=== PATIENT | male | born 1965 | race Hispanic/Latino ===

== ENCOUNTER 2017-07-08 17:08 | Observation (INO) | payer MEDICAID, OTHER ==
[2017-07-08 17:08] VITALS: BMI 30.7
--- NOTE | 2017-07-08 17:37 | ED PDOC ---
Arrival/HPI - General Historian: Patient - History of Present Illness Time/Duration: Prior to Arrival Symptom Onset: Sudden Symptom Course: Unchanged Quality: Pressure <Adriana Carcamo - Last Filed: 07/08/17 19:44> <Celia Avina - Last Filed: 07/08/17 19:49> - General Chief Complaint: Chest Pain Time Seen by Provider: 07/08/17 17:13 - History of Present Illness Narrative History of Present Illness (Text): This patient is a 52 year old male with a PMHx of hypothyroidism that presents complaining of chest pressure with associated dizziness. Patient stated that this morning before he left for work he experienced the chest tightness with dizziness. Patient stated "it feels like you grabbed me from behind and squeezed". The patient symptoms then resolved. Patient had a second episode of same symptoms after work while getting off the bus around 5pm today. Additionally, patient complains of neck stiffness that started this morning. Patient denies any fevers, sick contacts, urinary symptoms, headache, or recent camping trips. Patient does complain of nausea and vomiting. Of note, patient was hit in the head with a kicked ball after the first episode but before the second episode. He experienced nausea and vomiting after getting hit in the head with a ball. Patient is a former opiod abuser and admits to sniffing heroin yesterday after 8 years free of opiods. When asked about any recent stressors, he stated that his mother just . Patient also had his levothyroxine dose increased to 200 from 150 3 weeks ago. He hasn't taken his medication for 15 days due to insurance issues. ROS POSITIVES: Lightheadedness, dizziness, vision changes (during episodes), chills (chronic), difficulty breathing (during episodes). Inc. bowel frequency w / soft consistency and green colored. NEGATIVES: Diarrhea, Constipation, fevers, urinary symptoms, sick contacts, headaches PMH: Hypothyroidism PSH: R foot surgery Allergies: Pollen Social: 1PPD for 30 years. Denies alcohol. Admits to history of opioid abuse and relapsed yesterday after 8 years. FamHx: Father - Unspecified Heart Disease, Diabetes, and unspecified CA Meds: Reviewed. 07/08/17 18:09 (Adriana Carcamo) Past Medical History - Provider Review Nursing Documentation Reviewed: Yes - Tetanus Immunization Tetanus Immunization: Unknown - Cardiac Hx Cardiac Disorders: No - Pulmonary Hx Respiratory Disorders: No - Neurological Hx Neurological Disorder: No - HEENT Hx HEENT Disorder: No - Renal Hx Renal Disorder: No - Endocrine/Metabolic Hx Hypothyroidism: Yes - Hematological/Oncological Hx Blood Disorders: No - Integumentary Hx Dermatological Disorder: No - Musculoskeletal/Rheumatological Hx Fractures: Yes (rt heel) - Gastrointestinal Hx Gastrointestinal Disorders: No - Genitourinary/Gynecological Hx Genitourinary Disorders: No - Psychiatric Hx Psychophysiologic Disorder: No Hx Substance Use: Yes (opiods) - Surgical History Hx Orthopedic Surgery: Yes (rt foot) Other/Comment: Foot surgery - Anesthesia Hx Anesthesia: Yes - Suicidal Assessment Feels Threatened In Home Enviroment: No <Adriana Carcamo - Last Filed: 07/08/17 19:44> Family/Social History Family/Social History: Diabetes, Neoplasm/Cancer Smoking Status: Heavy Smoker > 10 Cigarettes Daily Hx Alcohol Use: No Hx Substance Use: Yes (opiods) Substance used: heroin <Adriana Carcamo - Last Filed: 07/08/17 19:44> - Physician Review Nursing Documentation Reviewed: Yes <Celia Avina - Last Filed: 07/08/17 19:49> Allergies/Home Meds <Adriana Carcamo - Last Filed: 07/08/17 19:44> <Celia Avina - Last Filed: 07/08/17 19:49> Allergies/Adverse Reactions: Allergies No Known Allergies Allergy (Verified 11/18/16 21:32) Home Medications: Home Meds Medication Instructions Recorded Confirmed Levothyroxine [Levoxyl] 0.175 mg PO DAILY 11/18/16 07/08/17 Ranitidine HCl 300 mg PO DAILY 11/18/16 07/08/17 Simvastatin 40 mg PO DAILY 11/18/16 07/08/17 Review of Systems - Physician Review All systems were reviewed & negative as marked: Yes (ROS as per HPI) - Review of Systems Gastrointestinal: Normal. absent: Abdominal Pain, Constipation Genitourinary Male: Normal. absent: Dysuria, Frequency <Adriana Carcamo - Last Filed: 07/08/17 19:44> Physical Exam Vital Signs Reviewed: Yes Temperature: Afebrile Blood Pressure: Normal Pulse: Regular Respiratory Rate: Normal Appearance: Positive for: Non-Toxic, Uncomfortable Pain Distress: Mild Mental Status: Positive for: Alert and Oriented X 3 - Systems Exam Head: Present: Atraumatic, Normocephalic Pupils: Present: PERRL, Sluggish, Pinpoint Extroacular Muscles: Present: EOMI Conjunctiva: Present: Normal Mouth: Present: Moist Mucous Membranes Nose (External): Present: Atraumatic Neck: Present: Paraspinal Tenderness (Right sided paraspinal tenderness (C1-C6)) . No: Normal Range of Motion (Decreased range of Motion ) Respiratory/Chest: Present: Clear to Auscultation. No: Respiratory Distress, Accessory Muscle Use, Wheezes, Rales, Rhonchi, Tender to Palpation Cardiovascular: Present: Regular Rate and Rhythm, Normal S1, S2. No: Murmurs, Tachycardic, Bradycardic, Rub, Gallop, Muffled Abdomen: Present: Normal Bowel Sounds. No: Tenderness, Distention, Peritoneal Signs, Rebound, Guarding Upper Extremity: Present: Normal Inspection Lower Extremity: Present: Normal Inspection Neurological: Present: GCS=15, Speech Normal Skin: Present: Warm, Dry, Normal Color. No: Diaphoretic Lymphatic: Present: Cervical Adenopathy Psychiatric: Present: Alert, Oriented x 3, Normal Affect, Normal Mood <Adriana Carcamo - Last Filed: 07/08/17 19:44> Vital Signs Temp Pulse Resp BP Pulse Ox 07/08/17 19:31 77 145/101 H 07/08/17 19:23 77 18 145/101 H 97 07/08/17 17:25 98.7 F 77 17 112/78 100 Medical Decision Making <Adriana Carcamo - Last Filed: 07/08/17 19:44> - EKG Interpretation Interpreted by ED Physician: Yes Type: 12 lead EKG <Celia Avina - Last Filed: 07/08/17 19:49> ED Course and Treatment: 52 year old male with PMHx of hypothyrodism presents with chest pressure and associated dizziness. --CBC/CMP --BNP --Serum Alcohol Level --Cardiac Iso --UDS/UA --Lipase --Mg --TSH --D-Dimer --PT/PTT --Zofran/Pepcid --CXR --Head CT W/O Contrast. --EKG --Reassess and Disposition 07/08/17 18:36 (Adriana Carcamo) 07/08/17 19:20 Patient Seen With Resident: In agreement with resident note which contains more details about the patient. Patient was seen and evaluated with resident. Came up with plan and treatment together. A 52 year old male whose past medical history includes hypothyroidism complains of chest pressure and associated dizziness. The patient treatment plan includes lab work up, Urinalysis, chest x-ray, head CT, and ekg. 07/08/17 19:47 Patient continues with intermittent cp; ekg is nondiagnostic and first set of CE negative - will need further observation on tele for evaluation and treatment of chest pain with concern of possible cardiac etiology. Resident Carlos Alberto discussed case with Dr. Fung for placement on the hospitalist service. ( Celia Avina) - Lab Interpretations Lab Results: 07/08/17 18:10 07/08/17 18:10 Lab Results 07/08/17 19:04: Free T4 0.41 L 07/08/17 18:25: Urine Color Yellow, Urine Appearance Clear, Urine pH 5.5, Ur Specific Ruby >= 1.030, Urine Protein Trace H, Urine Glucose (UA) Negative, Urine Ketones Negative, Urine Blood Negative, Urine Nitrate Negative, Urine Bilirubin Small H, Urine Urobilinogen 1.0 H, Ur Leukocyte Esterase Negative, Urine RBC 0 - 2, Urine WBC 1 - 3, Ur Epithelial Cells None, Urine Bacteria Few, Fine Granular Casts 0 - 2 07/08/17 18:10: Alcohol, Quantitative < 10 07/08/17 18:10: Sodium 140, Potassium 3.7, Chloride 103, Carbon Dioxide 27, Anion Gap 14, BUN 13, Creatinine 0.7 L, Est GFR ( Amer) > 60, Est GFR ( Non-Af Amer) > 60, Random Glucose 108, Calcium 9.4, Magnesium 1.9, Total Bilirubin 0.8, AST 63 H, ALT 89 H, Alkaline Phosphatase 68, Lactate Dehydrogenase 409, Total Creatine Kinase 130, Troponin I < 0.01, NT-Pro-B Natriuret Pep 88.5, Total Protein 9.1 H, Albumin 4.7, Globulin 4.5, Albumin/ Globulin Ratio 1.0 L, Lipase 69 11/28/17 18:10: PT 12.6 H, INR 1.15 H, APTT 39.1 H, D-Dimer, Quantitative < 200 07/08/17 18:10: WBC 10.8, RBC 4.77, Hgb 15.0, Hct 42.9, MCV 89.9, MCH 31.4, MCHC 35.0, RDW 13.4, Plt Count 231, MPV 9.7, Gran % 58.6, Lymph % (Auto) 34.7, [place] % (Auto) 5.0, Eos % (Auto) 1.3 L, Baso % (Auto) 0.4, Gran # 6.35, Lymph # 3.8 H, [place] # 0.5, Eos # 0.1, Baso # 0.04 - RAD Interpretation Radiology Orders: 07/08/17 18:01 CHEST PORTABLE [RAD] Stat 07/08/17 18:02 Brain [HEAD W/O CONTRAST] [CT] Stat - EKG Interpretation EKG Interpretation (Text): 07/08/17 19:49 NSR @ 76; no ST/T changes; normal intervals; normal axis. (Celia Avina) - Medication Orders Current Medication Orders: Discontinued Medications Famotidine (Pepcid) 20 mg IVP STAT STA Stop: 07/08/17 18:44 Last Admin: 07/08/17 18:51 Dose: 20 mg IVP Administration Document 07/08/17 18:51 SF (Rec: 07/08/17 18:51 SF [id number]) Charges for Administration # of IVP Administrations 1 Metoprolol Tartrate (Lopressor) 25 mg PO STAT STA Stop: 07/08/17 19:24 Last Admin: 07/08/17 19:31 Dose: 25 mg MAR Pulse and Blood Pressure Document 07/08/17 19:31 SF (Rec: 07/08/17 19:31 SF [id number]) Pulse Pulse Rate (60-90) 77 Blood Pressure Blood Pressure (100/60-150/90) 145/101 Ondansetron HCl (Zofran Inj) 4 mg IVP STAT STA Stop: 07/08/17 18:44 Last Admin: 07/08/17 18:51 Dose: 4 mg IVP Administration Document 11/28/17 18:51 SF (Rec: 07/08/17 18:51 SF [id number]) Charges for Administration # of IVP Administrations 1 <Adriana Carcamo - Last Filed: 07/08/17 19:44> - PA / FUNERAL DIRECTOR/EMBALMER/OWNER / Resident Statement MD/ has reviewed & agrees with the documentation as recorded. MD/ has examined the patient and agrees with the treatment plan. - Scribe Statement The provider has reviewed the documentation as recorded by the Scribe <Celia Avina - Last Filed: 07/08/17 19:49> - Scribe Statement Monique Monreal Provider Scribe Attestation: All medical record entries made by the Scribe were at my direction and personally dictated by me. I have reviewed the chart and agree that the record accurately reflects my personal performance of the history, physical exam, medical decision making, and the department course for this patient. I have also personally directed, reviewed, and agree with the discharge instructions and disposition. (Celia Avina) Disposition/Present on Arrival - Present on Arrival Any Indicators Present on Arrival: No History of DVT/PE: No History of Uncontrolled Diabetes: No Urinary Catheter: No History of Decub. Ulcer: No History Surgical Site Infection Following: None - Disposition Have Diagnosis and Disposition been Completed?: Yes Disposition Time: 19:37 <Adriana Carcamo - Last Filed: 07/08/17 19:44> <Celia Avina - Last Filed: 07/08/17 19:49> - Disposition Diagnosis: Chest tightness or pressure Disposition: HOSPITALIZED Patient Problems: Current Active Problems Problem Status Onset Chest tightness or pressure Acute Condition: STABLE Referrals: [facility] Izzy Loza, [Primary Care Provider] - Follow up with primary Forms: [email or web address] (German)
[2017-07-08 18:32] LABS: BASO # 0.04 K/mm3 (0.0-2.0); BASO % 0.4 % (0.0-3.0); EOS # 0.1 (0.0-0.7); EOS % 1.3 % (1.5-5.0); GRAN # 6.35 (1.4-6.5); GRAN % 58.6 % (50.0-68.0); HEMATOCRIT 42.9 % (42.0-52.0); LYMPH # 3.8 (1.2-3.4); LYMPH % 34.7 % (22.0-35.0); MEAN CELL VOLUME 89.9 fl (80.0-105.0); MEAN CORPUSCULAR HEMOGLOBIN 31.4 pg (25.0-35.0); MEAN PLATELET VOLUME 9.7 fl (7.0-11.0); MONO # 0.5 (0.1-0.6); RED CELL DISTRIBUTION WIDTH 13.4 % (11.5-14.5); WHITE BLOOD COUNT 10.8 10^3/ul (4.5-11.0)
[2017-07-08 18:45] LABS: PH,URINE 5.5 (4.7-8.0); URINE BILIRUBIN SMALL (NEGATIVE); URINE BLOOD NEGATIVE (NEGATIVE); URINE GLUCOSE (UA) NEGATIVE (NEGATIVE); URINE KETONE NEGATIVE (NEGATIVE); URINE LEUKOCYTE ESTERASE NEGATIVE Leu/uL (NEGATIVE); URINE PROTEIN TRACE mg/dL (<30 mg/dL)
[2017-07-08 18:46] LABS: ALKALINE PHOSPHATASE 68 U/L (38-126); ALT/SGPT 89 U/L (7-56); AST/SGOT 63 U/L (17-59); BILIRUBIN,TOTAL 0.8 mg/dL (0.2-1.3); BLOOD UREA NITROGEN 13 mg/dL (7-21); CALCIUM 9.4 mg/dL (8.4-10.5); CARBON DIOXIDE 27 mmol/L (21-33); CHLORIDE 103 mmol/L (98-107); GFR AFRICAN-AMERICAN > 60; GLUCOSE,RANDOM 108 mg/dL (70-110); LIPASE 69 U/L (23-300); MAGNESIUM 1.9 mg/dL (1.7-2.2); POTASSIUM 3.7 mmol/L (3.6-5.0); SODIUM 140 mmol/L (132-148); TOTAL PROTEIN 9.1 g/dL (5.8-8.3)
[2017-07-08 18:51] LABS: URINE APPEARANCE CLEAR (CLEAR); URINE COLOR YELLOW (YELLOW)
[2017-07-08 18:52] LABS: INR 1.15 (0.93-1.08); PARTIAL THROMBOPLASTIN TIME 39.1 Seconds (25.1-36.5)
[2017-07-08 18:58] LABS: TROPONIN I < 0.01 ng/mL
[2017-07-08 18:59] LABS: URINE BACTERIA FEW (NEG); URINE RBC 0 - 2 /hpf (0-2)
[2017-07-08 19:21] LABS: D DIMER < 200 ng/mL (0-243)
--- NOTE | 2017-07-08 19:44 | CARD ---
APPROVED REPORT EKG Measurement Heart [id number] <Conclusion> Normal sinus rhythm Low voltage QRS Borderline ECG
--- NOTE | 2017-07-08 20:02 | CT ---
EXAM: CT Head Without Intravenous Contrast EXAM DATE/TIME: 07/08/2017 6:02 PM CLINICAL HISTORY: The patient age is 52 years old and is male; Pain; Headache; Headache not specified; Additional info: Hit in head; Vomiting, dizzy Facility exam id and description: Ct heads head w/o contrast TECHNIQUE: Axial computed tomography images of the head/brain without intravenous contrast. All CT scans at this facility use one or more dose reduction techniques, viz.: automated exposure control; ma/kV adjustment per patient size (including targeted exams where dose is matched to indication; i.e. head); or iterative reconstruction technique. COMPARISON: No relevant prior studies available. FINDINGS: Brain: The white-hawkins differentiation is preserved demonstrating no acute territorial type infarct. No acute intracranial hemorrhage is seen. There are calcifications within the globus pallidus bilaterally, which are likely physiologic. Midline shift: There is no midline shift. Ventricles: No ventriculomegaly. Bones/joints: The calvarium demonstrates no evidence for a depressed fracture. Soft tissues: No acute abnormality. Vasculature: There is atherosclerotic calcification of the cavernous internal carotid arteries. Sinuses: There is minimal mucosal thickening of the left frontal sinus. A mucous retention cyst or polyp is visualized within the left maxillary sinus. There is a suggestion of effusion within the left maxillary sinus as well. Mastoid air cells: No mastoid effusion. IMPRESSION: 1. No acute intracranial abnormality. 2. Paranasal sinus disease is noted above.
--- NOTE | 2017-07-08 20:39 | CP.PCM.HP ---
<KendallElva - Last Filed: 07/08/17 20:39> History of Present Illness - History of Present Illness History of Present Illness: CC: Chest pressure HPI: 52M with a PMHx of hypothyroidism presents complaining of chest pressure with associated dizziness. Patient stated that this morning at 6:30 he experienced the chest tightness before he left for work. Patient stated "it feels like someone is grabbing me from behind and pulling me back or squeezing" . The patient symptoms resolved in 10 minutes after having a cup of coffee and sitting down. Patient had a second episode of same symptoms after work around 4:40 pm while getting off the bus. He says this time it was associated with dizziness, blurry vision, and SOB and he had to sit down. It resolved after 5 minutes. Of note, patient was hit in the head with a kicked soccer ball after the first episode but before the second episode. He experienced nausea and vomiting after getting hit and then again upon arrival to the ED. Additionally, patient complains of neck stiffness and difficulty turning his head to the right that started this morning when he woke up. Patient is a former opiod abuser and admits to sniffing a bag of heroin yesterday after 8 years free of opiods. He says he became addicted after a surgery on his foot in which he took percocet for. When asked about any recent stressors, he stated that his mother just . Patient also had his levothyroxine dose increased to 200 from 150 3 weeks ago, however, he hasn't taken his medication for 15 days because he left his bottle of pills in his pocket and put his pants in the washing machine. Patient denies any fevers, sick contacts, urinary symptoms, headache, diarrhea, or recent camping trips. PMH: Hypothyroidism PSH: R foot surgery Allergies: NKDA Social: 1PPD for 30 years. Denies alcohol. Admits to history of opioid abuse and relapsed yesterday after 8 years. FamHx: Father - Unspecified Heart Disease, Diabetes, and unspecified CA "in his stomach"; mother - thyroid disease Meds: Levothyroxine, Simvastatin Present on Admission - Present on Admission Any Indicators Present on Admission: No Review of Systems - Review of Systems All systems: reviewed and no additional remarkable complaints except (as per HPI ) Past Patient History - Tetanus Immunizations Tetanus Immunization: Unknown - Past Social History Smoking Status: Heavy Smoker > 10 Cigarettes Daily - CARDIAC Hx Cardiac Disorders: No - PULMONARY Hx Respiratory Disorders: No - NEUROLOGICAL Hx Neurological Disorder: No - HEENT Hx HEENT Problems: No - RENAL Hx Chronic Kidney Disease: No - ENDOCRINE/METABOLIC Hx Hypothyroidism: Yes - HEMATOLOGICAL/ONCOLOGICAL Hx Blood Disorders: No - INTEGUMENTARY Hx Dermatological Problems: No - MUSCULOSKELETAL/RHEUMATOLOGICAL Hx Fractures: Yes (rt heel) - GASTROINTESTINAL Hx Gastrointestinal Disorders: No - GENITOURINARY/GYNECOLOGICAL Hx Genitourinary Disorders: No - PSYCHIATRIC Hx Psychophysiologic Disorder: No Hx Substance Use: Yes (opiods) - SURGICAL HISTORY Hx Orthopedic Surgery: Yes (rt foot) Other/Comment: Foot surgery - ANESTHESIA Hx Anesthesia: Yes Meds Allergies/Adverse Reactions: Allergies Allergy/AdvReac Type Severity Reaction Status Date / Time No Known Allergies Allergy Verified 11/18/16 21:32 Physical Exam - Constitutional Appears: Non-toxic, No Acute Distress - Head Exam Head Exam: ATRAUMATIC, NORMAL INSPECTION, NORMOCEPHALIC - Eye Exam Eye Exam: EOMI, Normal appearance - ENT Exam ENT Exam: Mucous Membranes Moist - Respiratory Exam Respiratory Exam: Wheezes (expiratory ), NORMAL BREATHING PATTERN. absent: Accessory Muscle Use, Rales, Rhonchi, Respiratory Distress - Cardiovascular Exam Cardiovascular Exam: RRR, +S1, +S2. absent: Bradycardia, Tachycardia, Diastolic murmur, Gallop, Rubs, Systolic Murmur - GI/Abdominal Exam GI & Abdominal Exam: Normal Bowel Sounds, Soft. absent: Distended, Tenderness - Extremities Exam Extremities exam: Positive for: normal inspection, pedal pulses present. Negative for: calf tenderness, pedal edema - Neurological Exam Neurological exam: Alert, Oriented x3 - Psychiatric Exam Psychiatric exam: Normal Affect, Normal Mood - Skin Skin Exam: Dry, Intact, Normal Color, Warm Results - Vital Signs Recent Vital Signs: Last Vital Signs Temp 98.7 F 07/08/17 17:25 Pulse 70 07/08/17 20:05 Resp 17 07/08/17 20:05 BP 130/81 07/08/17 20:05 Pulse Ox 96 07/08/17 20:05 - Labs Result Diagrams: 07/08/17 18:10 07/08/17 18:10 Assessment & Plan - Assessment and Plan (Free Text) Assessment: Chest pain * Cardio consult ([facility]) - recs appreciated * CXR * EKG: NSR, low voltage QRS * D-Dimer: WNL * Trop neg x1 * f/u trops x2 * BNP: 88.5 * f/u echo * Continue Simvastatin Head trauma * CT head History Opiate Abuse * UDS * Alc <10 Hypothyroidism * Continue home med: levothyroxine 200mcg * TSH * Free T4: 0.41 Tobacco use * Counseled on smoking cessation Transaminitis * Prophylactic Measures * SCDs * Heparin * Pepcid <Gladys Fung - Last Filed: 07/09/17 06:54> Results - Vital Signs Recent Vital Signs: Last Vital Signs Temp 97.8 F 07/09/17 06:00 Pulse 80 07/09/17 06:00 Resp 16 07/09/17 06:00 BP 105/63 07/09/17 06:00 Pulse Ox 98 07/09/17 06:00 - Labs Result Diagrams: 07/09/17 05:30 07/08/17 18:10 Labs: Laboratory Results - last 24 hr 07/09/17 07/09/17 00:30 05:30 WBC 8.2 D RBC 4.52 Hgb 13.9 L Hct 41.0 L MCV 90.7 MCH 30.8 MCHC 33.9 RDW 13.5 Plt Count 215 MPV 9.9 Gran % 40.9 L Lymph % (Auto) 45.8 H [place] % (Auto) 6.0 Eos % (Auto) 6.6 H Baso % (Auto) 0.7 Gran # 3.33 Lymph # 3.7 H [place] # 0.5 Eos # 0.5 Baso # 0.06 Lactate Dehydrogenase 334 Total Creatine Kinase 119 Troponin I < 0.01 Attending/Attestation - Attestation I have personally seen and examined this patient.: Yes I have fully participated in the care of the patient.: Yes I have reviewed all pertinent clinical information: Yes Notes (Text): 07/09/17 06:52 Patient was seen when he was in bed # 8 in the ER. Agree with history , physical examination, assessment and plan.
[2017-07-08 21:31] VITALS: O2SAT 98
[2017-07-09 01:06] LABS: TROPONIN I < 0.01 ng/mL
[2017-07-09 06:00] LABS: BASO # 0.06 K/mm3 (0.0-2.0); BASO % 0.7 % (0.0-3.0); EOS # 0.5 (0.0-0.7); EOS % 6.6 % (1.5-5.0); GRAN # 3.33 (1.4-6.5); GRAN % 40.9 % (50.0-68.0); LYMPH # 3.7 (1.2-3.4); LYMPH % 45.8 % (22.0-35.0); MEAN CELL VOLUME 90.7 fl (80.0-105.0); MEAN CORPUSCULAR HEMOGLOBIN 30.8 pg (25.0-35.0); MEAN CORPUSCULAR HGB CONC 33.9 g/dl (31.0-37.0); MEAN PLATELET VOLUME 9.9 fl (7.0-11.0); MONO # 0.5 (0.1-0.6); RED CELL DISTRIBUTION WIDTH 13.5 % (11.5-14.5); WHITE BLOOD COUNT 8.2 10^3/ul (4.5-11.0)
[2017-07-09] MEDS ORDERED: Pantoprazole 20 mg EC Tab PO SCH (06:00)
[2017-07-09 07:02] LABS: TROPONIN I < 0.01 ng/mL
[2017-07-09 07:03] LABS: ALB/GLOB RATIO 1.1 (1.1-1.8); ALKALINE PHOSPHATASE 58 U/L (38-126); ALT/SGPT 71 U/L (7-56); AST/SGOT 55 U/L (17-59); BILIRUBIN,TOTAL 0.6 mg/dL (0.2-1.3); BLOOD UREA NITROGEN 13 mg/dL (7-21); CARBON DIOXIDE 28 mmol/L (21-33); CHLORIDE 104 mmol/L (98-107); GFR AFRICAN-AMERICAN > 60; GLUCOSE,RANDOM 88 mg/dL (70-110); POTASSIUM 3.5 mmol/L (3.6-5.0); SODIUM 139 mmol/L (132-148); TOTAL PROTEIN 7.3 g/dL (5.8-8.3)
[2017-07-09] MEDS ORDERED: Potassium Chloride 20 mEq ER Tab PO ONE (07:36)
[2017-07-09 09:11] LABS: CHOLESTEROL 125 mg/dL (130-200)
[2017-07-09] MEDS ORDERED: Levothyroxine 175 MCG TAB PO SCH (10:00)
[2017-07-09] MEDS ORDERED: Non Formulary Medication (Simvastatin [Simvastatin] 40 MG) PO SCH (10:00)
[2017-07-09] MEDS ORDERED: Levothyroxine 200 MCG TAB PO SCH (10:00)
--- NOTE | 2017-07-09 10:12 | RAD ---
HISTORY: chest pain COMPARISON: No prior. FINDINGS: LUNGS: No active pulmonary disease. PLEURA: No significant pleural effusion identified, no pneumothorax apparent. CARDIOVASCULAR: Normal. OSSEOUS STRUCTURES: No significant abnormalities. VISUALIZED UPPER ABDOMEN: Normal. OTHER FINDINGS: None. IMPRESSION: No active disease.
--- NOTE | 2017-07-09 11:59 | CP.PCM.DIS ---
<Lefty Gutierrez - Last Filed: 07/09/17 12:41> Provider - Provider Date of Admission: 07/08/17 19:27 Attending physician: Joseph Miller MD Time Spent in preparation of Discharge (in minutes): 45 Diagnosis - Discharge Diagnosis (1) Polysubstance abuse Status: Acute Priority: Medium (2) Hypothyroid Status: Chronic Priority: Medium (3) Chest tightness or pressure Status: Resolved Priority: Medium Hospital Course - Lab Results Lab Results: Most Recent Lab Values WBC 8.2 10^3/ul (4.5-11.0) D 07/09/17 05:30 RBC 4.52 10^6/uL (3.5-6.1) 07/09/17 05:30 Hgb 13.9 g/dL (14.0-18.0) L 07/09/17 05:30 Hct 41.0 % (42.0-52.0) L 07/09/17 05:30 MCV 90.7 fl (80.0-105.0) 07/09/17 05:30 MCH 30.8 pg (25.0-35.0) 07/09/17 05:30 MCHC 33.9 g/dl (31.0-37.0) 07/09/17 05:30 RDW 13.5 % (11.5-14.5) 07/09/17 05:30 Plt Count 215 10^3/uL (120.0-450.0) 07/09/17 05:30 MPV 9.9 fl (7.0-11.0) 07/09/17 05:30 Gran % 40.9 % (50.0-68.0) L 07/09/17 05:30 Lymph % (Auto) 45.8 % (22.0-35.0) H 07/09/17 05:30 [place] % (Auto) 6.0 % (1.0-6.0) 07/09/17 05:30 Eos % (Auto) 6.6 % (1.5-5.0) H 07/09/17 05:30 Baso % (Auto) 0.7 % (0.0-3.0) 07/09/17 05:30 Gran # 3.33 (1.4-6.5) 07/09/17 05:30 Lymph # 3.7 (1.2-3.4) H 07/09/17 05:30 [place] # 0.5 (0.1-0.6) 07/09/17 05:30 Eos # 0.5 (0.0-0.7) 07/09/17 05:30 Baso # 0.06 K/mm3 (0.0-2.0) 07/09/17 05:30 PT 12.6 SECONDS (9.4-12.5) H 07/08/17 18:10 INR 1.15 (0.93-1.08) H 07/08/17 18:10 APTT 39.1 Seconds (25.1-36.5) H 07/08/17 18:10 D-Dimer, Quantitative < 200 ng/mL (0-243) 07/08/17 18:10 Sodium 139 mmol/L (132-148) 07/09/17 05:30 Potassium 3.5 mmol/L (3.6-5.0) L 07/09/17 05:30 Chloride 104 mmol/L (98-107) 07/09/17 05:30 Carbon Dioxide 28 mmol/L (21-33) 07/09/17 05:30 Anion Gap 11 (10-20) 07/09/17 05:30 BUN 13 mg/dL (7-21) 07/09/17 05:30 Creatinine 0.8 mg/dl (0.8-1.5) 07/09/17 05:30 Est GFR ( Amer) > 60 07/09/17 05:30 Est GFR (Non-Af Amer) > 60 07/09/17 05:30 Random Glucose 88 mg/dL (70-110) 07/09/17 05:30 Calcium 9.0 mg/dL (8.4-10.5) 07/09/17 05:30 Magnesium 1.9 mg/dL (1.7-2.2) 07/08/17 18:10 Total Bilirubin 0.6 mg/dL (0.2-1.3) 07/09/17 05:30 AST 55 U/L (17-59) 07/09/17 05:30 ALT 71 U/L (7-56) H 07/09/17 05:30 Alkaline Phosphatase 58 U/L (38-126) 07/09/17 05:30 Lactate Dehydrogenase 310 U/L (333-699) L 07/09/17 05:30 Total Creatine Kinase 118 U/L (35-230) 07/09/17 05:30 Troponin I < 0.01 ng/mL 07/09/17 05:30 NT-Pro-B Natriuret Pep 88.5 pg/mL (0-450) 07/08/17 18:10 Total Protein 7.3 g/dL (5.8-8.3) 07/09/17 05:30 Albumin 3.9 g/dL (3.0-4.8) 07/09/17 05:30 Globulin 3.4 gm/dL 07/09/17 05:30 Albumin/Globulin Ratio 1.1 (1.1-1.8) 07/09/17 05:30 Triglycerides 84 mg/dL (35-160) 07/09/17 07:37 Cholesterol 125 mg/dL (130-200) L 07/09/17 07:37 LDL Cholesterol Direct 65 mg/dL (0-129) 07/09/17 07:37 HDL Cholesterol 42 mg/dL (29-60) 07/09/17 07:37 Lipase 69 U/L (23-300) 07/08/17 18:10 Free T4 0.41 ng/dL (0.78-2.19) L 07/08/17 19:04 TSH 3rd Generation 88.60 mIU/mL (0.46-4.68) H 07/08/17 18:10 Urine Color Yellow (YELLOW) 07/08/17 18:25 Urine Appearance Clear (CLEAR) 07/08/17 18:25 Urine pH 5.5 (4.7-8.0) 07/08/17 18:25 Ur Specific [place] >= 1.030 (1.005-1.035) 07/08/17 18:25 Urine Protein Trace mg/dL (<30 mg/dL) H 07/08/17 18:25 Urine Glucose (UA) Negative mg/dL (NEGATIVE) 07/08/17 18:25 Urine Ketones Negative mg/dL (NEGATIVE) 07/08/17 18:25 Urine Blood Negative (NEGATIVE) 07/08/17 18:25 Urine Nitrate Negative (NEGATIVE) 07/08/17 18:25 Urine Bilirubin Small (NEGATIVE) H 07/08/17 18:25 Urine Urobilinogen 1.0 E.U./dL (<1 E.U./dL) H 07/08/17 18:25 Ur Leukocyte Esterase Negative Michaela/uL (NEGATIVE) 07/08/17 18:25 Urine RBC 0 - 2 /hpf (0-2) 07/08/17 18:25 Urine WBC 1 - 3 /hpf (0-6) 07/08/17 18:25 Ur Epithelial Cells None /hpf (0-5) 07/08/17 18:25 Urine Bacteria Few (NEG) 07/08/17 18:25 Fine Granular Casts 0 - 2 /hpf (0-2) 07/08/17 18:25 Urine Opiates Screen Positive (NEGATIVE) H 07/08/17 18:25 Urine Methadone Screen Negative (NEGATIVE) 07/08/17 18:25 Ur Barbiturates Screen Negative (NEGATIVE) 07/08/17 18:25 Ur Phencyclidine Scrn Negative (NEGATIVE) 07/08/17 18:25 Ur Amphetamines Screen Negative (NEGATIVE) 07/08/17 18:25 U Benzodiazepines Scrn Positive (NEGATIVE) 07/08/17 18:25 U Oth Cocaine Metabols Negative (NEGATIVE) 07/08/17 18:25 U Cannabinoids Screen Positive (NEGATIVE) H 07/08/17 18:25 Alcohol, Quantitative < 10 mg/dL (0-10) 07/08/17 18:10 - Hospital Course Hospital Course: Patient is a 52 year old male with a past medical history of hypothyroidism who was admitted for evaluation of chest pressure with associated dizziness. With the use of physical examinations, lab work, and imaging the patient was diagnosed with and treated for chest pain, for which acute coronary syndrome was ruled out, along with the patients chronic medical conditions. During their hospital stay the patient was seen by cardiology and psychiatry whose recommendations were both appreciated and utilized in the care for this patient. During their hospital stay the patient underwent a CT of the head, EKG , and echocardiogram which were reviewed, appreciated, and utilized in the management of the patients clinical course. Patient was treated with thyroid medications, hyperlipidemia medications, amongst other empiric/therapeutic medications. At this time the patient is medically stable for discharge. Patient understands and appreciates discharge plan. Patient instructed to follow up with primary care physicians and referrals within three to five days from discharge. Furthermore, the patient is instructed to take medications as prescribed and to return to emergency room for evaluation of intractable headache, fever, chills, dizziness, chest pain, shortness of breath, abdominal pain, nausea, vomiting, diarrhea, constipation, and urinary symptoms. This is a brief summary of the patients hospital course. Please see patient chart for full details. Discharge Exam - Head Exam Head Exam: ATRAUMATIC, NORMAL INSPECTION, NORMOCEPHALIC - Additional Findings Additional findings: - Constitutional Appears: Non-toxic, No Acute Distress - Head Exam Head Exam: ATRAUMATIC, NORMAL INSPECTION, NORMOCEPHALIC - Eye Exam Eye Exam: EOMI, Normal appearance - ENT Exam ENT Exam: Mucous Membranes Moist - Respiratory Exam Respiratory Exam: NORMAL BREATHING PATTERN. absent: Accessory Muscle Use, Rales , Rhonchi, Respiratory Distress - Cardiovascular Exam Cardiovascular Exam: RRR, +S1, +S2. absent: Bradycardia, Tachycardia, Diastolic murmur, Gallop, Rubs, Systolic Murmur - GI/Abdominal Exam GI & Abdominal Exam: Normal Bowel Sounds, Soft. absent: Distended, Tenderness - Extremities Exam Extremities exam: Positive for: normal inspection, pedal pulses present. Negative for: calf tenderness, pedal edema - Neurological Exam Neurological exam: Patient is awake, alert, responds to verbal stimuli, answers questions appropriately, follows commands, and moves extremities past midline - Psychiatric Exam Psychiatric exam: Normal Affect, Normal Mood - Skin Skin Exam: Dry, Intact, Normal Color, Warm Discharge Plan - Discharge Medications Prescriptions: Aspirin 81 mg PO DAILY #30 tab.chew Levothyroxine [Synthroid] 200 mcg PO DAILY #30 tab - Follow Up Plan Condition: STABLE Disposition: HOME/ ROUTINE Patient education suggested?: Yes Instructions: Chest Pain (GEN), Narcotic Abuse (GEN), Hypothyroidism (DC) Additional Instructions: Patient Instructions: Take medications as prescribed. Follow up with primary care physician on July 12 and to the referrals within three to five days from discharge. Return to the emergency room for evaluation of intractable headache, fever, chills, dizziness, chest pain, shortness of breath, abdominal pain, nausea, vomiting, diarrhea, constipation, and urinary symptoms. Referrals: Silvano Lockett MD [Staff Provider] - <Joseph Miller - Last Filed: 07/09/17 15:25> Provider - Provider Date of Admission: 07/08/17 19:27 Attending physician: Joseph Miller MD Hospital Course - Lab Results Lab Results: Most Recent Lab Values WBC 8.2 10^3/ul (4.5-11.0) D 07/09/17 05:30 RBC 4.52 10^6/uL (3.5-6.1) 07/09/17 05:30 Hgb 13.9 g/dL (14.0-18.0) L 07/09/17 05:30 Hct 41.0 % (42.0-52.0) L 07/09/17 05:30 MCV 90.7 fl (80.0-105.0) 07/09/17 05:30 MCH 30.8 pg (25.0-35.0) 07/09/17 05:30 MCHC 33.9 g/dl (31.0-37.0) 07/09/17 05:30 RDW 13.5 % (11.5-14.5) 07/09/17 05:30 Plt Count 215 10^3/uL (120.0-450.0) 07/09/17 05:30 MPV 9.9 fl (7.0-11.0) 07/09/17 05:30 Gran % 40.9 % (50.0-68.0) L 07/09/17 05:30 Lymph % (Auto) 45.8 % (22.0-35.0) H 07/09/17 05:30 [place] % (Auto) 6.0 % (1.0-6.0) 07/09/17 05:30 Eos % (Auto) 6.6 % (1.5-5.0) H 07/09/17 05:30 Baso % (Auto) 0.7 % (0.0-3.0) 07/09/17 05:30 Gran # 3.33 (1.4-6.5) 07/09/17 05:30 Lymph # 3.7 (1.2-3.4) H 07/09/17 05:30 [place] # 0.5 (0.1-0.6) 07/09/17 05:30 Eos # 0.5 (0.0-0.7) 07/09/17 05:30 Baso # 0.06 K/mm3 (0.0-2.0) 07/09/17 05:30 PT 12.6 SECONDS (9.4-12.5) H 07/08/17 18:10 INR 1.15 (0.93-1.08) H 07/08/17 18:10 APTT 39.1 Seconds (25.1-36.5) H 07/08/17 18:10 D-Dimer, Quantitative < 200 ng/mL (0-243) 07/08/17 18:10 Sodium 139 mmol/L (132-148) 07/09/17 05:30 Potassium 3.5 mmol/L (3.6-5.0) L 07/09/17 05:30 Chloride 104 mmol/L (98-107) 07/09/17 05:30 Carbon Dioxide 28 mmol/L (21-33) 07/09/17 05:30 Anion Gap 11 (10-20) 07/09/17 05:30 BUN 13 mg/dL (7-21) 07/09/17 05:30 Creatinine 0.8 mg/dl (0.8-1.5) 07/09/17 05:30 Est GFR ( Amer) > 60 07/09/17 05:30 Est GFR (Non-Af Amer) > 60 07/09/17 05:30 Random Glucose 88 mg/dL (70-110) 07/09/17 05:30 Hemoglobin A1c 5.8 % (4.2-6.5) 07/09/17 07:37 Calcium 9.0 mg/dL (8.4-10.5) 07/09/17 05:30 Magnesium 1.9 mg/dL (1.7-2.2) 07/08/17 18:10 Total Bilirubin 0.6 mg/dL (0.2-1.3) 07/09/17 05:30 AST 55 U/L (17-59) 07/09/17 05:30 ALT 71 U/L (7-56) H 07/09/17 05:30 Alkaline Phosphatase 58 U/L (38-126) 07/09/17 05:30 Lactate Dehydrogenase 310 U/L (333-699) L 07/09/17 05:30 Total Creatine Kinase 118 U/L (35-230) 07/09/17 05:30 Troponin I < 0.01 ng/mL 07/09/17 05:30 NT-Pro-B Natriuret Pep 88.5 pg/mL (0-450) 07/08/17 18:10 Total Protein 7.3 g/dL (5.8-8.3) 07/09/17 05:30 Albumin 3.9 g/dL (3.0-4.8) 07/09/17 05:30 Globulin 3.4 gm/dL 07/09/17 05:30 Albumin/Globulin Ratio 1.1 (1.1-1.8) 07/09/17 05:30 Triglycerides 84 mg/dL (35-160) 07/09/17 07:37 Cholesterol 125 mg/dL (130-200) L 07/09/17 07:37 LDL Cholesterol Direct 65 mg/dL (0-129) 07/09/17 07:37 HDL Cholesterol 42 mg/dL (29-60) 07/09/17 07:37 Lipase 69 U/L (23-300) 07/08/17 18:10 Free T4 0.41 ng/dL (0.78-2.19) L 07/08/17 19:04 TSH 3rd Generation 88.60 mIU/mL (0.46-4.68) H 07/08/17 18:10 Urine Color Yellow (YELLOW) 07/08/17 18:25 Urine Appearance Clear (CLEAR) 07/08/17 18:25 Urine pH 5.5 (4.7-8.0) 07/08/17 18:25 Ur Specific [place] >= 1.030 (1.005-1.035) 07/08/17 18:25 Urine Protein Trace mg/dL (<30 mg/dL) H 07/08/17 18:25 Urine Glucose (UA) Negative mg/dL (NEGATIVE) 07/08/17 18:25 Urine Ketones Negative mg/dL (NEGATIVE) 07/08/17 18:25 Urine Blood Negative (NEGATIVE) 07/08/17 18:25 Urine Nitrate Negative (NEGATIVE) 07/08/17 18:25 Urine Bilirubin Small (NEGATIVE) H 07/08/17 18:25 Urine Urobilinogen 1.0 E.U./dL (<1 E.U./dL) H 07/08/17 18:25 Ur Leukocyte Esterase Negative Michaela/uL (NEGATIVE) 07/08/17 18:25 Urine RBC 0 - 2 /hpf (0-2) 07/08/17 18:25 Urine WBC 1 - 3 /hpf (0-6) 07/08/17 18:25 Ur Epithelial Cells None /hpf (0-5) 07/08/17 18:25 Urine Bacteria Few (NEG) 07/08/17 18:25 Fine Granular Casts 0 - 2 /hpf (0-2) 07/08/17 18:25 Urine Opiates Screen Positive (NEGATIVE) H 07/08/17 18:25 Urine Methadone Screen Negative (NEGATIVE) 07/08/17 18:25 Ur Barbiturates Screen Negative (NEGATIVE) 07/08/17 18:25 Ur Phencyclidine Scrn Negative (NEGATIVE) 07/08/17 18:25 Ur Amphetamines Screen Negative (NEGATIVE) 07/08/17 18:25 U Benzodiazepines Scrn Positive (NEGATIVE) 07/08/17 18:25 U Oth Cocaine Metabols Negative (NEGATIVE) 07/08/17 18:25 U Cannabinoids Screen Positive (NEGATIVE) H 07/08/17 18:25 Alcohol, Quantitative < 10 mg/dL (0-10) 07/08/17 18:10 Attending/Attestation - Attestation I have personally seen and examined this patient.: Yes I have fully participated in the care of the patient.: Yes I have reviewed all pertinent clinical information, including history, physical exam and plan: Yes Notes (Text): 07/09/17 15:18 attending note; Patient is a 52 year old male with a PMHx of hypothyroidism presents complaining of chest pressure with associated dizziness. patient was admitted to telemetry and monitored closely. EKG without significant changes. Cardiac enzymes 3 negative. Cardiology evaluation With Appreciated. Echocardiogram preliminary report showed normal ejection fraction. Dizziness; CT head is negative. Currently no complaints. Bereavement/depression; psychiatric evaluation appreciated. Patient was offered inpatient admission. Patient did not want inpatient admission at this time. Advised to follow-up with outpatient psychiatrist. hypothyroidism; patient is not taking Synthroid as prescribed for the past few weeks. Restarted on Synthroid 200 g. Advised to follow-up with PMD for repeat bloodwork. History of IV heroin abuse. Denies any history of HIV or hepatitis. Needs repeat bloodwork with PMD. Strongly advised to stop drug abuse. polysubstance abuse; urine drug screen is positive for opiates, benzos and cannabis. Patient has PMD in [place]. patient will be discharged home with close follow-up with PMD and psychiatrist as outpatient. Diagnosis; Chest pain Polysubstance abuse Hypothyroidism Noncompliance with follow-up 07/09/17 15:23
[2017-07-09 12:25] VITALS: BP 122/82; PULSE 74; RESP 20; TEMP 98.6
--- NOTE | 2017-07-09 13:24 | CP.PCM.CON ---
<Grecia Glasgow - Last Filed: 07/09/17 13:09> History of Present Illness - History of Present Illness History of Present Illness: This 53 year old male was seen at his bedside for evaluation of depressive symptoms. Patient mother 8 weeks ago, and patient reports increased depressive symptoms since then, including sleep, appetite, and focus and concentration issues to the point where he has been unable to work for the last 3 weeks. He denies active suicidal thoughts and indicates that his PMD and various family members have encouraged him to seek psychiatric treatment in the past. He denies the presence of hallucinations, delusions, or paranoia. He had not been taking his thyroid medication prior to admission, which can also have an impact on his mood. 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 Patient was offered inpatient admission. It appears this patient may have a Bipolar Spectrum disorder and could certainly benefit from medication and therapy. He indicates he is considering admission, so please call if he consents. Past Patient History - Tetanus Immunizations Tetanus Immunization: Unknown - Past Social History Smoking Status: Current Some Days Smoker - CARDIAC Hx Cardiac Disorders: No - PULMONARY Other/Comment: smoker 20 cigarretes daily for 30 years - NEUROLOGICAL Hx Neurological Disorder: No - HEENT Hx HEENT Problems: No - RENAL Hx Chronic Kidney Disease: No - ENDOCRINE/METABOLIC Hx Hypothyroidism: Yes - HEMATOLOGICAL/ONCOLOGICAL Hx Blood Disorders: No - INTEGUMENTARY Hx Dermatological Problems: No - MUSCULOSKELETAL/RHEUMATOLOGICAL Hx Falls: No - GASTROINTESTINAL Hx Gastrointestinal Disorders: No - GENITOURINARY/GYNECOLOGICAL Hx Genitourinary Disorders: No - PSYCHIATRIC Hx Substance Use: Yes (heroin) Other/Comment: Drug abuse - SURGICAL HISTORY Hx Orthopedic Surgery: Yes (rt foot) Other/Comment: Foot surgery - ANESTHESIA Hx Anesthesia: Yes Meds Home Medications: Home Medication List Medication Instructions Recorded Confirmed Type Aspirin 81 mg PO DAILY #30 tab.chew 07/09/17 Rx Levothyroxine [Synthroid] 200 mcg PO DAILY #30 tab 07/09/17 Rx Allergies/Adverse Reactions: Allergies Allergy/AdvReac Type Severity Reaction Status Date / Time No Known Allergies Allergy Verified 11/18/16 21:32 - Medications Medications: Current Medications Atorvastatin Calcium (Lipitor) 20 mg PO DIN SHELLIE Heparin Sodium (Porcine) (Heparin) 5,000 units SC Q12 SHELLIE PRN Reason: Protocol Last Admin: 07/09/17 09:18 Dose: Not Given Levothyroxine Sodium (Synthroid) 200 mcg PO DAILY [facility] Last Admin: 07/09/17 09:17 Dose: 200 mcg Pantoprazole Sodium (Protonix Ec Tab) 20 mg PO 0600 [facility] Last Admin: 07/09/17 08:20 Dose: 20 mg Results - Vital Signs Recent Vital Signs: Last Vital Signs Temp 98.6 F 07/09/17 12:00 Pulse 74 07/09/17 12:00 Resp 20 07/09/17 12:00 BP 122/82 07/09/17 12:00 Pulse Ox 98 07/09/17 06:00 - Labs Result Diagrams: 07/09/17 05:30 07/09/17 05:30 Labs: Laboratory Results - last 24 hr 07/09/17 07/09/17 07/09/17 00:30 05:30 05:30 WBC 8.2 D RBC 4.52 Hgb 13.9 L Hct 41.0 L MCV 90.7 MCH 30.8 MCHC 33.9 RDW 13.5 Plt Count 215 MPV 9.9 Gran % 40.9 L Lymph % (Auto) 45.8 H [place] % (Auto) 6.0 Eos % (Auto) 6.6 H Baso % (Auto) 0.7 Gran # 3.33 Lymph # 3.7 H [place] # 0.5 Eos # 0.5 Baso # 0.06 Sodium 139 Potassium 3.5 L Chloride 104 Carbon Dioxide 28 Anion Gap 11 BUN 13 Creatinine 0.8 Est GFR ( Amer) > 60 Est GFR (Non-Af Amer) > 60 Random Glucose 88 Hemoglobin A1c Calcium 9.0 Total Bilirubin 0.6 AST 55 ALT 71 H Alkaline Phosphatase 58 Lactate Dehydrogenase 334 310 L Total Creatine Kinase 119 118 Troponin I < 0.01 < 0.01 Total Protein 7.3 Albumin 3.9 Globulin 3.4 Albumin/Globulin Ratio 1.1 Triglycerides Cholesterol LDL Cholesterol Direct HDL Cholesterol 07/09/17 07/09/17 07:37 07:37 WBC RBC Hgb Hct MCV MCH MCHC RDW Plt Count MPV Gran % Lymph % (Auto) [place] % (Auto) Eos % (Auto) Baso % (Auto) Gran # Lymph # [place] # Eos # Baso # Sodium Potassium Chloride Carbon Dioxide Anion Gap BUN Creatinine Est GFR ( Amer) Est GFR (Non-Af Amer) Random Glucose Hemoglobin A1c 5.8 Calcium Total Bilirubin AST ALT Alkaline Phosphatase Lactate Dehydrogenase Total Creatine Kinase Troponin I Total Protein Albumin Globulin Albumin/Globulin Ratio Triglycerides 84 Cholesterol 125 L LDL Cholesterol Direct 65 HDL Cholesterol 42 <Sherin Billy - Last Filed: 07/09/17 16:35> History of Present Illness - History of Present Illness History of Present Illness: Patient was seen with nurse practitioner Patient was found to be irritable, reported being depressed reported that he has poor sleep and appetite, patient might benefit from psychiatric admission, which was offered to the patient. Patient wanted to speak to his family, discusses that option. Patient denied thoughts of harming himself, denied thoughts of harming others, but patient reported to have difficulties with functioning. Impression most likely patient has bipolar spectrum disorder Plan: Patient might benefit from psychiatric admission Patient wants to think about that Patient does not meet the criteria for screening for involuntary commitment pt is not in imminent danger to self or others d/w medical team Results - Vital Signs Recent Vital Signs: Last Vital Signs Temp 98.6 F 07/09/17 12:00 Pulse 74 07/09/17 12:00 Resp 20 07/09/17 12:00 BP 122/82 07/09/17 12:00 Pulse Ox 98 07/09/17 06:00 - Labs Result Diagrams: 07/09/17 05:30 07/09/17 05:30 Labs: Laboratory Results - last 24 hr 07/09/17 07/09/17 07/09/17 00:30 05:30 05:30 WBC 8.2 D RBC 4.52 Hgb 13.9 L Hct 41.0 L MCV 90.7 MCH 30.8 MCHC 33.9 RDW 13.5 Plt Count 215 MPV 9.9 Gran % 40.9 L Lymph % (Auto) 45.8 H [place] % (Auto) 6.0 Eos % (Auto) 6.6 H Baso % (Auto) 0.7 Gran # 3.33 Lymph # 3.7 H [place] # 0.5 Eos # 0.5 Baso # 0.06 Sodium 139 Potassium 3.5 L Chloride 104 Carbon Dioxide 28 Anion Gap 11 BUN 13 Creatinine 0.8 Est GFR ( Amer) > 60 Est GFR (Non-Af Amer) > 60 Random Glucose 88 Hemoglobin A1c Calcium 9.0 Total Bilirubin 0.6 AST 55 ALT 71 H Alkaline Phosphatase 58 Lactate Dehydrogenase 334 310 L Total Creatine Kinase 119 118 Troponin I < 0.01 < 0.01 Total Protein 7.3 Albumin 3.9 Globulin 3.4 Albumin/Globulin Ratio 1.1 Triglycerides Cholesterol LDL Cholesterol Direct HDL Cholesterol 07/09/17 07/09/17 07:37 07:37 WBC RBC Hgb Hct MCV MCH MCHC RDW Plt Count MPV Gran % Lymph % (Auto) [place] % (Auto) Eos % (Auto) Baso % (Auto) Gran # Lymph # [place] # Eos # Baso # Sodium Potassium Chloride Carbon Dioxide Anion Gap BUN Creatinine Est GFR ( Amer) Est GFR (Non-Af Amer) Random Glucose Hemoglobin A1c 5.8 Calcium Total Bilirubin AST ALT Alkaline Phosphatase Lactate Dehydrogenase Total Creatine Kinase Troponin I Total Protein Albumin Globulin Albumin/Globulin Ratio Triglycerides 84 Cholesterol 125 L LDL Cholesterol Direct 65 HDL Cholesterol 42
--- NOTE | 2017-07-09 20:43 | CARD ---
APPROVED REPORT EXAM: Two-dimensional and M-mode echocardiogram with Doppler and color Doppler. INDICATION Chest Pain 2D DIMENSIONS Left Atrium (2D)4.4 (1.6-4.0cm)IVSd0.9 (0.7-1.1cm) LVDd4.7 (3.9-5.9cm)PWd1.0 (0.7-1.1cm) LVDs3.0 (2.5-4.0cm)FS (%) 35.7 % LVEF (%)65.1 (>50%) M-Mode DIMENSIONS Aortic Root3.70 (2.2-3.7cm)Aortic Cusp Exc.2.40 (1.5-2.0cm) Aortic Valve AoV Peak Pbtjnbdf622.0cm/Garcia Peak GR.7mmHg Mitral Valve MV E Lfdjlnrz80.6cm/sMV A Dprasmxf04.6cm/sE/A ratio1.0 TDI Lateral E' Peak V11.10cm/sMedial E' Peak V7.31cm/sE/Lateral E'6.2 E/Medial E'9.4 Pulmonary Valve PV Peak Mrjkwczs32.3cm/sPV Peak Grad.1mmHg Tricuspid Valve TR Peak Hbinjeuz494cn/sRAP [id number] Peak Gr.22mmHg [id number] LEFT VENTRICLE The left ventricle is normal size. There is normal left ventricular wall thickness. The left ventricular function is normal. The left ventricular ejection fraction is within the normal range. There is normal LV segmental wall motion. Transmitral Doppler flow pattern is Grade I-abnormal relaxation pattern. RIGHT VENTRICLE The right ventricle is normal size. There is normal right ventricular wall thickness. The right ventricular systolic function is normal. ATRIA The left atrium size is normal. The right atrium size is normal. AORTIC VALVE The aortic valve is normal in structure. No aortic regurgitation is present. MITRAL VALVE The mitral valve is normal in structure. There is no mitral valve regurgitation noted. TRICUSPID VALVE The tricuspid valve is normal in structure. PULMONIC VALVE There is mild pulmonic valvular regurgitation. GREAT VESSELS The aortic root is normal in size. The IVC is normal in size and collapses >50% with inspiration. PERICARDIAL EFFUSION There is a trace loculated anterior pericardial effusion. <Conclusion> The left ventricle is normal size. There is normal left ventricular wall thickness. The left ventricular function is normal. The left ventricular ejection fraction is within the normal range. There is normal LV segmental wall motion. Transmitral Doppler flow pattern is Grade I-abnormal relaxation pattern.
--- NOTE | 2017-07-09 22:47 | CON ---
CARDIOLOGY CONSULT DATE: REASON FOR CONSULTATION: Chest tightness. HISTORY OF PRESENT ILLNESS: The patient is a 52-year-old male who has known prior cardiac history and has a history of history of hypothyroidism and hyperlipidemia, on Synthroid and statin. He presented because of dizziness and chest discomfort. The patient states that he wake up, felt dizziness and unsteadiness, and then felt chest tightness as well as upper back pain. The patient denies any associated diaphoresis. The patient does not recall experiencing palpitation. SOCIAL HISTORY: The patient is a smoker and nondrinker. He works as a welder production line arc. MEDICATIONS: Lipitor 20 mg once a day, Protonix 40 mg once a day, and Synthroid 200 mcg once a day. REVIEW OF SYSTEMS: No nausea or vomiting. No fever or chills. No productive cough. PHYSICAL EXAMINATION: GENERAL: The patient is a middle-aged male who does not appear to be in any acute distress. VITAL SIGNS: Blood pressure 105/63, heart rate 80, temperature 97.8, and respirations 16. HEENT: Normocephalic. NECK: No JVD. CHEST: Clear. HEART: S1 and S2 regular. ABDOMEN: Soft. EXTREMITIES: No edema. LABORATORY DATA: Hemoglobin and hematocrit today 15.9 and 41.0. White count and platelet count are within normal limit. SMA-7 is within normal limit except for potassium of 3.5. Three sets of troponins are negative. TSH level is significantly elevated at 88.6 and free T4 is 0.41. INR is 1.15 and PTT 39.1. D-dimer is within normal limit. Urine drug screen is positive for opioids and cannabinoids. EKG revealed sinus rhythm. Head CT scan without contrast revealed no acute intracranial abnormality. ASSESSMENT: 1. Chest pain, myocardial infarction ruled out. 2. Profound hypothyroidism. 3. Mild hypokalemia. 4. Hyperlipidemia. 5. Cannabinoid and opioid abuse. RECOMMENDATIONS: Continue current Lipitor and Synthroid therapy. I will review the echocardiographic study performed today. May consider repeat head CT scan or brain MRI. Silvano Lockett MD
--- NOTE | 2017-07-10 11:16 | CP.PCM.PCO ---
Addendum Addendum: 07/10/17 11:15pt was offered admission, pt declined that offer, pt was d/c by medical team, pt posed no imminent danger to self or others
--- NOTE | 2017-07-11 11:46 | CP.PCM.PCO ---
Physician Communication Note - Physician Communication Note Physician Communication Note: Echo normal. Left message of results on pts answering machine.
== END 2017-07-09 13:45 | disposition home or self-care (01) ==
LOC: ED 17:08 → ERH 19:27 → 2RSO 22:56
PROVIDERS: ADMIT Internal Medicine; ATTEND Internal Medicine
DX: R07.89 Other chest pain (principal); R42 Dizziness and giddiness; F11.10 Opioid abuse, uncomplicated; F12.10 Cannabis abuse, uncomplicated; E03.9 Hypothyroidism, unspecified; E78.5 Hyperlipidemia, unspecified; E87.6 Hypokalemia; M43.6 Torticollis; F17.210 Nicotine dependence, cigarettes, uncomplicated; Z91.19 Patient's noncompliance with other medical treatment and regimen
CPT/HCPCS: 36415; 70450; 71010; 80053; 80061; 80320; 80324; 80345; 80346; 80349; 80353; 80358; 80361; 81001; 82550; 83036; 83615; 83690; 83735; 83880; 83992; 84439; 84443; 84484; 85025; 85378; 85610; 85730; 93005; 93306; 96372; 96374; 96375; 99285; G0378; J1644; J2405